=== PATIENT | female | born 1945 | race Caucasian/White ===

== ENCOUNTER 2020-10-02 10:00 | Outpatient (RCR) | payer MEDICARE, OTHER, SELFPAY | END 2020-10-02 10:05 | disposition home or self-care (01) | LOC: PT 10:00 | PROVIDERS: PCP Physician Assistant; Visit Provider Nurse Practitioner Family | DX: I83.813 Varicose veins of bilateral lower extremities with pain (principal); S81.801A Unspecified open wound, right lower leg, initial encounter | CPT/HCPCS: 97140; 97162; 97760 ==